=== PATIENT | female | born 1945 | race Caucasian/White ===

== ENCOUNTER → 2017-09-20 | Outpatient (CLI) | payer MEDICARE, OTHER | LOC: COL.RAD 11:21 | DX: N20.0 Calculus of kidney (principal); I86.8 Varicose veins of other specified sites; R91.8 Other nonspecific abnormal finding of lung field; K57.30 Diverticulosis of large intestine without perforation or abscess without bleeding | CPT/HCPCS: Q9967 ==

== ENCOUNTER → 2017-10-26 | Outpatient (CLI) | payer MEDICARE, OTHER | LOC: COL.RAD 12:55 | DX: R91.8 Other nonspecific abnormal finding of lung field (principal) ==

== ENCOUNTER → 2018-11-03 | Outpatient (CLI) | payer MEDICARE, OTHER | LOC: COL.VAS 14:09 | DX: R01.1 Cardiac murmur, unspecified (principal) ==

== ENCOUNTER 2019-08-13 20:22 | Inpatient (IN) | payer MEDICARE, OTHER ==
[~2019-08-13] VITALS: Ht 162.6 cm; Wt 93.6 kg
[2019-08-13] MEDS ORDERED: ZESTRIL 5MG5 MG PO (21:08)
[2019-08-13] MEDS ORDERED: ALEVE 220MG220 MG PO (21:09)
[2019-08-13 21:37] VITALS: BP 144/54; PULSE 86; TEMP 97.6
[2019-08-14] VITALS (7 sets, daily range): BP systolic 137–150; BP diastolic 51–62; PULSE 76–90; TEMP 97.9–98.4
--- NOTE | 2019-08-14 01:00 | NUR ---
Patient has been having pain since arriving. [place] given for pain and patient stated it is helping. No complaints of nausea. Her family was here but they have gone home. Patients admission orders and assessments completed. She is worried about having surgery. Patient is a little hard of hearing. No other changes at this time. Call light within reach.
--- NOTE | 2019-08-14 06:30 | NUR ---
Patient is having increased pain this am. Giving morphine for pain. Denies nausea. She stated her pain picked up when she got up to the bathroom. She has not been sleeping much during the night. No other changes at this time. Call light within reach.
--- NOTE | 2019-08-14 07:00 | NUR ---
appears to be dozing, awakens easily, bedside shift report received from LINCOLN Cline
[2019-08-14 07:07] LABS: BASO % 0.3 % (0.0-2.0); EOS # 0.2 (0.0-0.7); EOS % 1.1 % (0-4.0); GRAN # 12.7 (1.4-6.5); GRAN % 83.1 % (42.2-75.2); HEMATOCRIT 37.1 % (37.0-47.0); HEMOGLOBIN 12.5 g/dl (12.5-16.0); LYMPH # 1.2 (1.2-3.4); LYMPH % 7.6 % (20.0-51.0); MEAN CELL VOLUME 92 fl (80.0-100.0); MEAN CORPUSCULAR HEMOGLOBIN 31 pg (27.0-31.0); MEAN CORPUSCULAR HGB CONC 34 g/dl (33.0-37.0); MEAN PLATELET VOLUME 10.2 fl (7.4-10.4); MONO # 1.1 (0.1-0.6); MONO % 7.4 % (1.7-9.3); PLATELET COUNT 121 K/mm3 (130-400); RED BLOOD COUNT 4.05 M/mm3 (4.10-5.30); REDCELL DISTRIBUTION WIDTH-CV 13.2 % (11.5-14.5)
[2019-08-14 07:23] LABS: ALBUMIN 3.4 gm/dL (3.5-5.0); BILIRUBIN,TOTAL 1.9 mg/dL (0.0-1.0); CALCIUM 8.1 mg/dL (8.4-10.2); CHOLESTEROL RISK RATIO 3.8; CREATININE, serum 0.63 (0.52-1.25); MAGNESIUM 1.7 mg/dL (1.6-2.3); POTASSIUM 3.6 mmol/L (3.4-5.0); TOTAL PROTEIN 6.4 gm/dL (6.4-8.2)
[2019-08-14 07:29] LABS: TROPONIN-I 0.034 ng/mL (0.000-0.035)
--- NOTE | 2019-08-14 07:50 | NUR ---
medication technician in for sono of gallbladder
--- NOTE | 2019-08-14 08:15 | NUR ---
full assessment completed, see interventions for further info, denies needs at this time, daughter at bedside
--- NOTE | 2019-08-14 09:50 | NUR ---
Ticket Collector met with patient to discuss discharge planning. Patient lives in [place] with her Hugo (ph#[phone]). Patient was seeing Dr. Casas for primary care prior to his longterm. Patient would like to get established with Dr. Carlton on [facility]. Patient obtains her medications at either [facility] or [facility] pharmacy. Patient reports she has a cane and walker from when she had knee replacement surgery however does not use DME on a regular basis. Patient reports her is scheduled to have hip surgery in a couple weeks and she is concerned about her ability to care for him at home upon discharge. Patient reports independence with ADLS and plans to return home upon discharge with Hugo providing transportation. No additional needs at this time.
--- NOTE | 2019-08-14 10:09 | NUR ---
visiting with , c/o pain and medicated with hydrocodone 5mg 1 tab, declines am hygiene with POLYSOMNOGRAPHY TECH, just wants to rest
--- NOTE | 2019-08-14 11:15 | NUR ---
resting in bed visiting with friend, states relief from pain pill, sitting up on side of bed to have clear liquids
--- NOTE | 2019-08-14 12:36 | NUR ---
Initial visit; Patient thanked Interdisciplinary Professor for looking in on her and making sure she has a support system. Interdisciplinary Professor offered God's blessings.
--- NOTE | 2019-08-14 14:22 | NUR ---
c/o increased abdominal pain and medicated with hydrocodone 5mg 1 tab
--- NOTE | 2019-08-14 15:00 | NUR ---
awake and states relief of pain from pain pill
--- NOTE | 2019-08-14 16:00 | NUR ---
in bed and appears to be dozing, lights off, eyes closed, resp quiet and easy
--- NOTE | 2019-08-14 17:14 | NUR ---
up and about in room independently, denies needs
--- NOTE | 2019-08-14 17:55 | NUR ---
refuses any clear liquids for supper
--- NOTE | 2019-08-14 18:20 | NUR ---
c/o increasing pain and medicated with hydrocodone 5mg 1 tab
--- NOTE | 2019-08-14 19:06 | NUR ---
bedside shift report given to LINCOLN Bowman
--- NOTE | 2019-08-14 21:45 | NUR ---
Resting in bed. Assessment complete. Lungs clear. Heart sounds normal. Bowels active x4. pulses strong throughout. No edema noted. IV right AC infusing without complications. Denies pain at this time, but request PRN norco at 2215. Denies other needs at this time. Call light in reach.
--- NOTE | 2019-08-14 22:30 | NUR ---
Provided patient with PRN norco and zofran for 6/10 ABD pain and nausea. Denies other needs at this time. Call light in reach.
[2019-08-15] VITALS (12 sets, daily range): BP systolic 136–159; BP diastolic 53–99; PULSE 74–88; TEMP 97.6–98.8
--- NOTE | 2019-08-15 03:05 | NUR ---
Reports 7 ABD pain. PRovided with PRN norco at this time. Denies other needs .Call light in reach.
--- NOTE | 2019-08-15 06:37 | NUR ---
Patient required PRN norco and zofran throughout night. Otherwise uneventful night. Resting in bed this AM. Call light in reach.
--- NOTE | 2019-08-15 07:22 | NUR ---
Report given to LINCOLN Sweet
[2019-08-15 07:37] LABS: BASO % 0.2 % (0.0-2.0); EOS # 0.2 (0.0-0.7); EOS % 1.2 % (0-4.0); GRAN # 11.9 (1.4-6.5); GRAN % 85.3 % (42.2-75.2); HEMOGLOBIN 11.3 g/dl (12.5-16.0); MEAN CELL VOLUME 93 fl (80.0-100.0); MEAN CORPUSCULAR HEMOGLOBIN 31 pg (27.0-31.0); MEAN CORPUSCULAR HGB CONC 33 g/dl (33.0-37.0); MEAN PLATELET VOLUME 10.6 fl (7.4-10.4); MONO # 0.8 (0.1-0.6); MONO % 5.8 % (1.7-9.3); PLATELET COUNT 128 K/mm3 (130-400); RED BLOOD COUNT 3.65 M/mm3 (4.10-5.30); REDCELL DISTRIBUTION WIDTH-CV 13.1 % (11.5-14.5)
--- NOTE | 2019-08-15 07:40 | NUR ---
Lying in bed with eyes open. Rating pain 6/10, upper abd, describes as sharp ache. [place] administered as prescribed. Patient denies further needs at this time.
[2019-08-15 07:53] LABS: HEMATOCRIT 34.1 % (37.0-47.0)
[2019-08-15 07:58] LABS: ALBUMIN 3.2 gm/dL (3.5-5.0); BILIRUBIN,TOTAL 1.1 mg/dL (0.0-1.0); CALCIUM 7.8 mg/dL (8.4-10.2); CREATININE, serum 0.59 (0.52-1.25); POTASSIUM 3.5 mmol/L (3.4-5.0); TOTAL PROTEIN 6.1 gm/dL (6.4-8.2)
--- NOTE | 2019-08-15 12:03 | NUR ---
Rating pain in upper abd 4/10, describes as ache, and requests pain medication as it is increasing. Administered [place] as prescribed. Reviewed consent for procedure with the patient. Questions answered. Patient signs consent, will place in chart. Patient up in room visiting with guest.
--- NOTE | 2019-08-15 15:18 | NUR ---
Patient to surgery via bed escorted by Cyril from surgery.
--- NOTE | 2019-08-15 17:55 | NUR ---
Patient to room via bed from PACU. Alert and oriented x3. Denies pain at this time. Lap sites x3 to abd, bandaids CDI. in room. Patient denies needs at this time.
--- NOTE | 2019-08-15 18:55 | NUR ---
Lying in bed with eyes open. Patient explains that she feels better than what she has. No pain at this time. Feels that her abd is smaller than what it was. Report provided to LINCOLN Bowman.
--- NOTE | 2019-08-15 21:03 | NUR ---
Resting in bed. Assessment complete. Lungs clear. Heart sounds normal. Bowels active x4. Pulses strong throughout. No edema noted. IV right AC infusing without complications. X3 ABD lap sites CDI with bandaide intact. Denies pain at this time. Denies needs. Call light in reach.
--- NOTE | 2019-08-15 23:15 | NUR ---
Resting in bed on cell phone. Denies pain. Call light in reach.
[2019-08-16 00:33] VITALS: BP 158/58; PULSE 71; TEMP 97.9
[2019-08-16 04:06] VITALS: BP 165/59; PULSE 79; TEMP 98.4
[2019-08-16 04:34] VITALS: BP 149/72
[2019-08-16 06:09] LABS: HEMOGLOBIN 11.1 g/dl (12.5-16.0); MEAN CELL VOLUME 91 fl (80.0-100.0); MEAN CORPUSCULAR HEMOGLOBIN 30 pg (27.0-31.0); MEAN CORPUSCULAR HGB CONC 33 g/dl (33.0-37.0); MEAN PLATELET VOLUME 10.5 fl (7.4-10.4); PLATELET COUNT 139 K/mm3 (130-400); RED BLOOD COUNT 3.67 M/mm3 (4.10-5.30)
[2019-08-16 06:17] LABS: ALBUMIN 3.3 gm/dL (3.5-5.0); BILIRUBIN,TOTAL 0.5 mg/dL (0.0-1.0); CALCIUM 8.4 mg/dL (8.4-10.2); CREATININE, serum 0.61 (0.52-1.25); POTASSIUM 3.9 mmol/L (3.4-5.0); TOTAL PROTEIN 6.3 gm/dL (6.4-8.2)
--- NOTE | 2019-08-16 06:30 | NUR ---
Patient had uneventful night. Up giving self sponge bath this AM. Call light in reach.
[2019-08-16 06:31] LABS: HEMATOCRIT 33.3 % (37.0-47.0)
--- NOTE | 2019-08-16 06:57 | NUR ---
Report given to LINCOLN Clemente
[2019-08-16 07:29] VITALS: BP 170/69; PULSE 73; TEMP 97.6
[2019-08-16 07:44] LABS: BAND 16 % (0-10); LYMPHOCYTE 6 % (20.0-51.0); NEUTROPHILS 78 % (42.0-75.2); PLATELET ESTIMATE NORMAL (NORMAL)
[2019-08-16] MEDS ORDERED: NORCO 325 MG-51 TAB PO (08:23)
--- NOTE | 2019-08-16 10:32 | NUR ---
agree with student josh's assessments this shift.
[2019-08-16] MEDS ORDERED: ZOFRAN ODT4 MG PO (10:46)
[2019-08-16 12:36] VITALS: BP 166/65; PULSE 88; TEMP 98
--- NOTE | 2019-08-16 12:42 | NUR ---
Sports Physiotherapist attended clinical rounds with the team and patient to discharge home today. SW presented and explained IM form to patient who verbalized understanding and provided signature. SW placed original in chart and provided copy to patient. No additional needs at this time.
--- NOTE | 2019-08-16 13:29 | NUR ---
Pt on couch in room with visitor. No reports of pain while eating. Ambulating without difficulty. Call light within reach, no further questions or needs at this time.
--- NOTE | 2019-08-16 15:40 | NUR ---
discharge instructions provided to pt and spouse. questions answered. pt taken to front in wheel chair.
== END 2019-08-16 15:45 | disposition home or self-care (01) | DRG 419 ==
LOC: MEDICAL 20:22 → SURG 21:01
PROVIDERS: Physician Assistant; Surgery; ADMIT Internal Medicine
PROC: BF13YZZ Fluoroscopy of Gallbladder and Bile Ducts using Other Contrast (ICD-10-PCS; 2019-08-15)
PROC: 0FT44ZZ Resection of Gallbladder, Percutaneous Endoscopic Approach (ICD-10-PCS; principal; 2019-08-15 16:45)
DX: K85.10 Biliary acute pancreatitis without necrosis or infection (principal); E66.9 Obesity, unspecified; I10 Essential (primary) hypertension; E78.5 Hyperlipidemia, unspecified; R73.03 Prediabetes; Z96.651 Presence of right artificial knee joint; Z87.442 Personal history of urinary calculi; Z85.828 Personal history of other malignant neoplasm of skin; Z68.35 Body mass index [BMI] 35.0-35.9, adult
CPT/HCPCS: 99222-AI; 99231-AI; 99232-AI; 99239; A4216; J0696; J1100; J1650; J1885; J2250; J2270; J2405; J2704; J3010; J7030; J7120; Q9967